=== PATIENT | female | born 1965 | race Caucasian/White ===

== ENCOUNTER 2019-05-08 13:09 | Outpatient (CLI) | payer OTHER, SELFPAY ==
--- NOTE | ~2019-05-08 | MM_ITS ---
EXAMINATION: MM screening [facility] BI w francisco HISTORY: Screening mammogram TECHNIQUE: Craniocaudal and mediolateral oblique 3-D tomosynthesis images were obtained and synthetic 2-D images were generated. CAD analysis was submitted and interpreted. COMPARISON: 07/01/2014, 11/21/2009 BREAST PARENCHYMAL COMPOSITION: The breasts are heterogeneously dense, which may obscure small masses . FINDINGS: There is no evidence of suspicious mass, calcification, or architectural distortion to sugg est malignancy in either breast. There has been no suspicious interval change. IMPRESSION: 1. No mammographic evidence of malignancy. 2. Recommend routine screening mammography in one year. BI-RADS Category 1: Negative Reviewed, dictated and finalized at location A. 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
== END 2019-05-08 13:10 | disposition home or self-care (01) ==
LOC: ANHIMG 13:14
PROVIDERS: Visit Provider Obstetrics & Gynecology
DX: Z12.31 Encounter for screening mammogram for malignant neoplasm of breast (principal)
CPT/HCPCS: 77063; 77067

== ENCOUNTER 2021-05-10 05:57 | Emergency (ER) | payer OTHER, SELFPAY ==
--- NOTE | ~2021-05-10 | CT_ITS ---
EXAMINATION: CT brain wo con, CT cervical spine wo con EXAM DATE: 05/10/2021 06:30 (accession [id number]), 05/10/2021 06:29 (accession [id number]) INDICATION: Fall On Monday. Struck Right Side Face/Anterior Head. TECHNIQUE: Spiral CT of the head was performed without contrast. Axial, coronal and sagittal images were reviewed. Spiral CT of the cervical spine was performed without contrast. Axial images were rev iewed. Coronal and sagittal reformatted images were also reviewed. The dose-length product (DLP) fo r this examination was 605.33 (accession [id number]), 460.57 (accession [id number]) mGy-cm. The exposure was tailored according to patient size, and iterative reconstruction (ASIR) was used as additional dose reduction technique. There is no prior study for comparison. FINDINGS: HEAD CT: There is no acute intraparenchymal hemorrhage. No evidence of intraparenchymal brain mass l esion. No evidence of acute infarction. There is mild to moderate amount of subcortical hypodensity which is nonspecific but probably microangiopathy. There is no mass effect or midline shift. There i s no obstructive hydrocephalus suspected. There are no extra-axial collections. There are no acute calvarial fractures. The orbits are unremarkable. Moderate-sized right frontal scalp hematoma. The visualized sinuses and mastoid air cells are well aerated. CERVICAL CT: There is no evidence of acute cervical fracture. The odontoid process is intact. Pre- dens space is normal. Prevertebral soft tissue is normal. There are no soft tissue abnormalities id entified. There is no disc space widening or traumatic vertebral body subluxation suspected. There is advanced left-sided C3-4 facet arthropathy, otherwise mild cervical arthritis. Vertebral body and disc heights are well-maintained. A detailed level by level evaluation of spondylosis can be added as addendum if requested. IMPRESSION: 1. No acute intracranial findings or cervical fracture. 2. Moderate-sized right frontal scalp hematoma. 3. White matter nonspecific hypodensities, most likely microangiopathy. Reviewed, dictated and finalized at location A. BUFFER IMPRESSION: 1. No acute intracranial findings or cervical fracture. 2. Moderate-sized right frontal scalp hematoma. 3. White matter nonspecific hypodensities, most likely microangiopathy.
[2021-05-10 06:04] VITALS: BP 168/92; PULSE 110; RESP 18; TEMP 36.8; O2SAT 99
--- NOTE | 2021-05-10 06:16 | ED.GENADULT ---
HPI - General Adult General Chief complaint: Head Injury Stated complaint: head injury Time Seen by Provider: 05/10/21 06:08 Source: patient, family and RN notes reviewed Mode of arrival: ambulatory History of Present Illness HPI narrative: 55-year-old female presents to the emergency department for evaluation after having a head injury on Monday. Patient states that she hit the top of her head on Monday. Patient denies any loss of consciousness. Patient states that she did have some scalp swelling. Patient states when she woke up this morning she noticed she had a black eye. Patient denies any change in vision. Patient denies any eye pain. Patient denies any facial injury. Patient does report acute on chronic posterior neck pain. Patient denies any associated numbness or weakness. Related Data Home Medications Medication Instructions Recorded Confirmed Celexa 05/10/21 nifedipine 05/10/21 omeprazole 40 mg PO DAILY 05/10/21 Allergies Allergy/AdvReac Type Severity Reaction Status Date / Time codeine Allergy Unknown Nausea and Verified 05/10/21 06:02 Vomiting Sulfa (Sulfonamide Allergy Unknown Blister Verified 05/10/21 06:02 Antibiotics) Review of Systems Review of Systems: CONSTITUTIONAL: Denies fever, chills, or sweats. EYES: Ecchymosis around the right eye. Patient denies any change in vision of the right eye. ENT: Denies rhinorrhea, congestion, sore throat, or otalgia. CARDIOVASCULAR: Denies chest pain, palpitations, or edema. RESPIRATORY: Denies cough or dyspnea. GASTROINTESTINAL: Denies abdominal pain, nausea, vomiting, or diarrhea. GENITOURINARY: Denies dysuria or hematuria. SKIN: Denies rash or itching. MUSCULOSKELETAL: Denies back pain, joint pain, or myalgia. NEUROLOGIC: Denies headache, numbness, or weakness. PSYCHIATRIC: Denies anxiety or depression. All systems reviewed & are unremarkable except as noted in HPI and below Exam Narrative: APPEARANCE: Well appearing, no pain, no distress, well-nourished. HEAD: normocephalic, scalp tenderness to palpation. Resolving hematoma palpated on anterior scalp. No facial tenderness to palpation. Patient does have ecchymosis of both upper and lower lids of the right eye. EYES: PERRLA/EOMI, conjunctivae clear. NOSE: Normal no drainage EARS:TMS clear with good light reflex. NECK: Posterior cervical spine RESPIRATORY: Airway patent, respirations nonlabored. Clear to auscultation bilaterally, no rales, rhonchi, wheezing. CARDIOVASCULAR: Regular rate and rhythm without murmurs rubs or gallops. ABDOMINAL: Soft, nontender, nondistended, normal bowel sounds MUSCULOSKELETAL: Moves all extremities. Strength/ROM intact, No edema, No calf tenderness. NEURO: Alert. Cranial nerves II through XII intact. Good gait. Good coordination SKIN: Warm, dry. Normal Color PSYCHIATRIC: Normal affect/mood. Course Course Emergency Course: Patient was updated on the results of her head CT and the resolving scalp hematoma as the underlying etiology for her ecchymosis. All questions concerns were addressed. Patient was in no distress at time of discharge from the emergency room. Patient was encouraged to have close follow-up with her primary care physician. Vital Signs Vital signs: Vital Signs Temperature 98.3 F 05/10/21 06:04 Pulse Rate 110 H 05/10/21 06:04 Respiratory Rate 18 05/10/21 06:04 Blood Pressure 168/92 H 05/10/21 06:04 Pulse Oximetry 99 05/10/21 06:04 Temperature 98.3 F 05/10/21 06:04 Pulse Rate 110 H 05/10/21 06:04 Respiratory Rate 14 05/10/21 06:53 Blood Pressure 168/92 H 05/10/21 06:04 Pulse Oximetry 99 05/10/21 06:04 Medical Decision Making Vital Signs Vital Signs: Vital Signs Temperature 98.3 F 05/10/21 06:04 Pulse Rate 110 H 05/10/21 06:04 Respiratory Rate 18 05/10/21 06:04 Blood Pressure 168/92 H 05/10/21 06:04 Pulse Oximetry 99 05/10/21 06:04 Temperature 98.3 F 05/10/21 06:04 Pulse Rate
[2021-05-10 06:53] VITALS: RESP 14
== END 2021-05-10 06:55 | disposition home or self-care (01) ==
PROVIDERS: Emergency Provider Emergency Medicine
DX: S00.11XA Contusion of right eyelid and periocular area, initial encounter (principal); S00.03XA Contusion of scalp, initial encounter; W00.0XXA Fall on same level due to ice and snow, initial encounter
CPT/HCPCS: 70450; 72125; 99284

== ENCOUNTER 2024-03-27 08:15 | Outpatient (CLI) | payer OTHER, SELFPAY ==
--- NOTE | ~2024-03-27 | MM_ITS ---
EXAMINATION: MM screening [facility] BI w [facility] HISTORY: Screening TECHNIQUE: Craniocaudal and mediolateral oblique 3-D tomosynthesis images were obtained and synthetic 2-D images were generated. CAD analysis was submitted and interpreted. COMPARISON: Comparison to multiple prior studies sequentially, with oldest reviewed study dated 07/01. BREAST PARENCHYMAL COMPOSITION: Not dense: There are scattered areas of fibroglandular density. FINDINGS: There is no evidence of suspicious mass, calcification, or architectural distortion to sugg est malignancy in either breast. There has been no suspicious interval change. IMPRESSION: 1. No mammographic evidence of malignancy. 2. Recommend routine screening mammography in one year. BI-RADS Category 1: Negative Reviewed, dictated and finalized at location B. 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
== END 2024-03-27 08:16 | disposition home or self-care (01) ==
LOC: ANHIMG 08:19
PROVIDERS: PCP Family Medicine; Visit Provider Obstetrics & Gynecology
DX: Z12.31 Encounter for screening mammogram for malignant neoplasm of breast (principal)
CPT/HCPCS: 77063; 77067